=== PATIENT | male | born 1965 | race Caucasian/White ===

== ENCOUNTER → 2017-03-14 | Outpatient (CLI) | payer OTHER ==
[~2017-03-14] MED LIST: AMLODIPINE BESYL5 MG PO; ASPIRIN81 M1 PO; ASPIRIN81 M2 PO; CHOLESTEROL PILL; CLEOCIN HCL300 M1 PO; COMBIVENT INH14.7 GM INH; COMBIVENT U/D3 M2 INH; COMBIVENT U/D3 ML INH; FLEXERIL PO; FLEXERIL10 MG PO; IBUPROFEN PO; IBUPROFEN800 MG PO; LIPITOR PO; LIPITOR40 MG PO; LOW DOSE ASPIRI81 M2 PO; NICOTINE TRANSD21 MG ID; NITROSTAT0.4 MG SL; NO MEDICATIONS; NORCO 10/3251 TAB PO; OMEPRAZOLE20 M2 PO; PRAVASTATIN SOD40 MG PO; PREDNISONE PO; PREDNISONE10 MG/DOSE PO; PRILOSEC20 M1 PO; ROBAXIN 750750 M1 PO; ROBAXIN500 MG PO; TYLENOL #3 PO; VICODIN 5-3001 EACH PO; VICODIN 5/500 T1 TAB PO
--- NOTE | ~2017-03-14 | CR63 ---
[facility]. [place] A Service of [facility] & [facility] RADIOLOGY TEXT RESULTS PATIENT: KATINA TIERNEY LOCATION: [facility] : 67 UNIT #: [id number] AGE: [address]: Roel Kapoor MD SEX: M ORDER DR: [id number] [place] [id number] O MR#: [id number] Acc #: [id number] NAME: KATINA TIERNEY : 1965 SEX: M STUDY DATE/TIME: 03/14/2017 20:38 UNIT: SRAD ROOM: STUDY DESCRIPTION: CR Chest 2 View Attending Physician: Roel Kapoor M.D. Referring Physician: Roel Kapoor M.D. Ordering Physician: Roel Kapoor M.D. Primary Care Physician: Roel Kapoor M.D. MEDICAL IMAGING REPORT This report is preliminary unless electronic signature is present. EXAM Chest x-ray 03/14/2038 INDICATION Follow up enlarged heart. History of chronic smoking. Patient reports a cough from last week. FINDINGS 2 views of the chest compared with 09/15/2016. Cardiac and mediastinal contours are normal. Lungs are emphysematous but clear. No pneumothorax. IMPRESSION Emphysema. No active disease. Dictated by... Jama Moy Jr., M.D. THIS IS AN ELECTRONICALLY VERIFIED REPORT Jama Moy Jr., M.D. at 03/15/2017 5:17 PM VITALIY/ginny TD: 03/15/2017 09:39 JOB #: [id number] MEDICAL IMAGING REPORT Page 1 of 1
== END | disposition home or self-care (01) ==
LOC: SRAD 20:09
DX: F17.210 Nicotine dependence, cigarettes, uncomplicated (principal); J43.9 Emphysema, unspecified
CPT/HCPCS: 71020

== ENCOUNTER 2017-03-21 22:30 | Emergency (ER) | payer OTHER ==
[2017-03-21 23:15] LABS: BASOPHIL% 0.4 % (0-2.5); HEMATOCRIT 50.8 % (38.0-50.0); HEMOGLOBIN 17.3 gm/dL (13.0-16.0); LYMPHOCYTE# 0.7 X10e3 (1.0-3.5); LYMPHOCYTE% 7.9 % (17.0-45.0); MEAN CELL VOLUME 88.5 FL (83-96); MEAN CORPUSCULAR HEMOGLOBIN 30.1 PG (28-34); MEAN PLATELET VOLUME 11.6 FL (6.5-11.5); MONOCYTE# 0.9 X10e3 (0-1.0); NEUTROPHIL# 7.4 X10e3 (1.5-7.1); NEUTROPHIL% 81.7 % (40-75); PLATELET COUNT 102 X10e3 (140-420); RED BLOOD COUNT 5.74 X10e (3.90-5.60); RED CELL DISTRIBUTION WIDTH 13.8 % (11.0-15.5); WHITE BLOOD COUNT 9.1 X10e3 (4.0-10.5)
[2017-03-21 23:17] LABS: DIFF IND NO
[2017-03-21 23:25] LABS: BUN/CREATININE RATIO 17.69; CALCIUM SERUM 8.3 mg/dL (8.4-10.2); CREATININE SERUM 1.3 mg/dL (0.6-1.4); GLOM FILT RATE Estimated 63.6 mL/min (>60); POTASSIUM 3.6 mmol/L (3.5-5.1)
== END 2017-03-22 01:03 | disposition home or self-care (01) ==
LOC: SED 22:30
PROVIDERS: Emergency Medicine
DX: E86.0 Dehydration (principal); E87.1 Hypo-osmolality and hyponatremia; J44.9 Chronic obstructive pulmonary disease, unspecified; F17.200 Nicotine dependence, unspecified, uncomplicated; Z88.5 Allergy status to narcotic agent; Z79.899 Other long term (current) drug therapy
CPT/HCPCS: 36415; 80048; 85025; 96361; 96374; 96375; 99284; C9113; J2405